=== PATIENT | female | born 1965 | race Caucasian/White ===

== ENCOUNTER 2020-09-26 12:53 | Outpatient (CLI) | payer BC, SELFPAY ==
--- NOTE | 2020-09-26 13:05 | XR_ITS ---
WS: [id number] Right knee, 3 views, 09/26/2020 Clinical Data: RT KNEE PAIN Comparison: None. Findings: No fractures or dislocations are seen. The joint spaces are normal. The patella is intact. The soft t issues are unremarkable. There is a calcification adjacent to the lateral femoral condyle which may be from prior injury. It c ould also be a calcification within the synovial cartilage. XR/XR knee RT 3V* [id number] Impression: Negative for acute injury of the right knee.
== END 2020-09-26 12:54 | disposition home or self-care (01) ==
LOC: RADWPI 12:56
PROVIDERS: PCP Family Medicine; Visit Provider Family Medicine
DX: M25.561 Pain in right knee (principal)
CPT/HCPCS: 73562

== ENCOUNTER 2021-06-04 07:55 | Outpatient (CLI) | payer BC, SELFPAY ==
--- NOTE | 2021-06-04 08:00 | MM_ITS ---
WS: [id number] BILATERAL SCREENING DIGITAL MAMMOGRAM WITH CAD HISTORY: SCREENING COMPARISON: 09/28/2019 and 06/15/2018 Bilateral CC and MLO views submitted. Computer aided detection analyzed. Breast composition: The breasts are extremely dense, which lowers the sensitivity of mammography. No suspicious masses, microcalcifications or architectural distortion. Very dense breast tissue with dif fuse scattered calcifications. Majority of these calcifications appear benign. There are no suspiciou s grouping of calcifications appreciated. MM/[place] [id number] IMPRESSION: BI-RADS: 2-Benign FOLLOW UP: 1 Year Follow-up
== END 2021-06-04 07:56 | disposition home or self-care (01) ==
LOC: RADSHAW 07:59
PROVIDERS: PCP Family Medicine; Visit Provider Family Medicine
DX: Z12.31 Encounter for screening mammogram for malignant neoplasm of breast (principal)
CPT/HCPCS: 77067

== ENCOUNTER 2022-02-19 11:00 | Outpatient (CLI) | payer BC, SELFPAY ==
--- NOTE | 2022-02-19 11:23 | XR_ITS ---
WS: [id number] Exam: XR knee LT 3V* [id number] Date/Time of Exam: 02/19/2022 11:26 AM Reason For Exam: PAIN IN LEFT KNEE No fracture or dislocation. The joint compartments are well preserved. Effusion in the suprapatellar bursa. XR/XR knee LT 3V* [id number] IMPRESSION: 1. Joint effusion. No fracture or other significant finding.
== END 2022-02-19 11:01 | disposition home or self-care (01) ==
PROVIDERS: PCP Family Medicine; Visit Provider Family Medicine
DX: M25.562 Pain in left knee (principal); M25.462 Effusion, left knee
CPT/HCPCS: 73562

== ENCOUNTER 2022-07-14 08:25 | Outpatient (CLI) | payer BC, SELFPAY ==
--- NOTE | 2022-07-14 08:31 | MM_ITS ---
WS: [id number] Bilateral screening 3D tomosynthesis digital mammogram, 07/14/2022 Clinical Data: SCREENING Comparison: 06/04/2021, 09/28/2019, 06/15/2018, 06/08/2017, 05/19/2016, 05/01/2015, 09/19/2013, 02/14/2012, 09/11/2010, 09/18/2008, 06/18/2007. Findings: The breast parenchymal pattern shows heterogeneous density. No spiculated masses or clustered calcif ications are seen. There are no secondary signs of carcinoma. There are small benign calcifications t hroughout both breasts. MM/[place] [id number] Impression: 1. Negative bilateral mammogram unchanged. 2. Recommend annual screening mammograms. BIRADS: 2-Benign FOLLOW UP: 1 Year Follow-up The CAD relay checker was used.
== END 2022-07-14 08:26 | disposition home or self-care (01) ==
PROVIDERS: PCP Family Medicine; Visit Provider Family Medicine
DX: Z12.31 Encounter for screening mammogram for malignant neoplasm of breast (principal)
CPT/HCPCS: 77063; 77067

== ENCOUNTER 2022-07-20 07:19 | Outpatient (RCR) | payer BC, SELFPAY | END 2022-07-21 23:59 | disposition home or self-care (01) | LOC: SPT 07:19 | PROVIDERS: PCP Family Medicine; Visit Provider Family Medicine | DX: M25.562 Pain in left knee (principal) | CPT/HCPCS: 97110; 97161 ==

== ENCOUNTER 2022-07-22 06:00 | Outpatient (RCR) | payer BC, SELFPAY | END 2022-08-20 23:59 | disposition home or self-care (01) | LOC: SPT 06:00 | PROVIDERS: PCP Family Medicine; Visit Provider Family Medicine | DX: M25.562 Pain in left knee (principal) | CPT/HCPCS: 97110 ==

== ENCOUNTER 2023-08-24 06:52 | Day surgery (SDC) | payer BC, SELFPAY ==
[2023-08-22 09:39] VITALS: BMI 22.2
[2023-08-24 07:04] VITALS: BP 121/84; PULSE 75; RESP 16; TEMP 36.2; O2SAT 96; BMI 22.2
--- NOTE | 2023-08-24 07:17 | ANES.PREANE2 ---
Pre-Anesthetic Assessment Height/Weight: Height 1.68 m Weight 62.596 kg Temp Pulse Resp BP Pulse Ox O2 Del Method 97.2 F L 75 16 121/84 96 Room Air 08/24/23 07:04 08/24/23 07:04 08/24/23 07:04 08/24/23 07:04 08/24/23 07:04 08/24/23 07:04 Preop Diagnosis: SCREENING Operation Date: 08/24/23 08:00 Proposed Procedures p Colonoscopy 81182,z12.11(Not Applicable) - Jas Velázquez DO Familial anesthetic complications: NONE Was Beta Kelin taken within 24 hours: N/A Last intake: Intake Last Liquid Date 08/23/23 Last Liquid Time 20:30 Last Solid Date 08/22/23 Last Solid Time 18:00 Social No alcohol and No tobacco Exam alert, oriented x 3, clear to auscultation bilaterally and regular rate & rhythm Airway Submandibular: within normal limits Cervical ROM: within normal limits Mallampati: Class I Dentition: full Pulmonary None reported CV/HEM Palpitations None reported Hepatic None reported GI None reported Metabolic None reported Musc/skel None reported Neuropsych None reported Anesthetic Plan ASA status: 1 Anesthesia: MAC Medications/Allergies Home Medications Medication Instructions Recorded Confirmed Last Taken Type metoprolol tartrate 25 mg tablet 12.5 mg PO DAILY 08/22/23 08/24/23 08/23/23 History Allergies Allergy/AdvReac Type Severity Reaction Status Date / Time No Known Allergies Allergy Unverified 06/07/23 08:32 [facility] Anesthesia Social History Smoking and tobacco status: never smoked Alcohol intake: never Household members: spouse and children Marital status: Current occupational status: retired Data Anesthesia Cardiac Studies: No Data to Display
[2023-08-24] MEDS: sodium chloride 0.9% 1,000 ML 30 ML IV (07:24)
--- NOTE | 2023-08-24 07:45 | PM.HP ---
Providers/Chief Complaint Primary Care Provider: Korin Verdugo MD Chief Complaint: Z12.11 History of Present Illness Momo Catherine is a 58 year old female Review of Systems General: Reports: 10 or more systems reviewed and unremarkable except in HPI and below Medications/Allergies Home Medications Medication Instructions Recorded Confirmed Last Taken Type metoprolol tartrate 25 mg tablet 12.5 mg PO DAILY 08/22/23 08/24/23 08/23/23 History Allergies Allergy/AdvReac Type Severity Reaction Status Date / Time No Known Allergies Allergy Unverified 06/07/23 08:32 PFSH Acute PFSH: Medical History (Updated 08/24/23 @ 07:45 by Jas Velázquez DO) History of colon polyps Surgical History (Updated 08/24/23 @ 07:45 by Jas Velázquez DO) Hx of colonoscopy 5 years ago, Polyp was found Social History Smoking and tobacco status: never smoked Alcohol intake: never Household members: spouse and children Marital status: Current occupational status: retired Vitals/I&O/Wt Last Vital Signs Temp 97.2 F L 08/24/23 07:04 Pulse 75 08/24/23 07:04 Resp 16 08/24/23 07:04 BP 121/84 08/24/23 07:04 Pulse Ox 96 08/24/23 07:04 O2 Del Method Room Air 08/24/23 07:04 Weight last 48 hrs Weight 138 lb Weight 138 lb A&P Assessment and plan (1) History of colon polyps: Plan Screening colonoscopy The risks and benefits of the procedure, including bleeding, infection, intestinal perforation requiring surgery, missed lesion were explained to the patient. The patient is understanding of the risks and wishes to proceed. Attestations Medical Necessity Statement*: Home Coding Level of Care Code Acute Code for Chg Fwd Diagnoses History of colon polyps Z86.010
[2023-08-24 07:59] LABS: OR HCG Qualitative Urine Negative (Negative)
[2023-08-24 08:07] VITALS: BP 108/69; PULSE 67; RESP 16; TEMP 36.2; O2SAT 100
[2023-08-24 08:12] VITALS: BP 118/70; PULSE 62; RESP 18; O2SAT 100
--- NOTE | 2023-08-24 08:15 | ANE.PACU2 ---
Inpatient post-anesthesia follow up: Airway intact: Yes Vital signs: Temperature 97.1 F Pulse Rate 62 Respiratory Rate 18 Blood Pressure 134/88 Pulse Oximetry 99 Oxygen Delivery Me thod Room Air Oxygen Flow Rate 100 Fraction of Inspir ed Oxygen Hydration adequate: Yes Nausea and vomiting: No Pain level: 1 Mental status: Baseline
[2023-08-24 08:22] VITALS: BP 134/88; PULSE 62; RESP 18; O2SAT 99
== END 2023-08-24 08:35 | disposition home or self-care (01) ==
PROVIDERS: PCP Family Medicine; Visit Provider Surgery
PROC: 0DJD8ZZ Inspection of Lower Intestinal Tract, Via Natural or Artificial Opening Endoscopic (ICD-10-PCS; CPT 45378; principal; 2023-08-24 08:00)
DX: Z12.11 Encounter for screening for malignant neoplasm of colon (principal); Z86.010 Personal history of colon polyps
CPT/HCPCS: 45378; 81025; 84703; J2704; J7030

== ENCOUNTER 2023-09-08 09:54 | Outpatient (CLI) | payer BC, SELFPAY ==
--- NOTE | 2023-09-08 10:04 | MM_ITS ---
WS: [id number] SCREENING DIGITAL BREAST TOMOSYNTHESIS MAMMOGRAM WITH CAD HISTORY: SCREENING COMPARISON: 06/04/2021, 07/14/2022, 09/28/2019 Bilateral CC and MLO with tomosynthesis and synthetic mammography submitted. Computer aided detection analyzed. Breast composition: The breasts are heterogeneously dense, which may obscure small masses. There is a n asymmetry in the lateral RIGHT breast at a posterior depth measuring 8 mm. This asymmetry has becom e more prominent and most recent years. Recommend additional evaluation. Not definitely visualized on the lateral projection. Additional bilateral benign calcifications. IMPRESSION: MM/[place] [id number] BI-RADS: 0-Incomplete: Need additional imaging evaluation FOLLOW UP: Need Additional Imaging RIGHT breast: Spot compression views (CC and MLO). True ML. Ultrasound to follo w if abnormality persists.
== END 2023-09-08 09:55 | disposition home or self-care (01) ==
LOC: RAD 09:55
PROVIDERS: PCP Family Medicine; Visit Provider Family Medicine
DX: Z12.31 Encounter for screening mammogram for malignant neoplasm of breast (principal)
CPT/HCPCS: 77063; 77067

== ENCOUNTER 2023-10-24 08:04 | Outpatient (CLI) | payer BC, SELFPAY ==
--- NOTE | 2023-10-24 08:13 | MM_ITS ---
WS: [id number] ADDITIONAL VIEWS RIGHT MAMMOGRAM WITH DIGITAL BREAST TOMOSYNTHESIS. RIGHT BREAST ULTRASOUND HISTORY: ABNORMAL MAMMO COMPARISON: 09/08/2023, 07/14/2022, 06/04/2021 RIGHT MAMMOGRAM: Spot compression views and true ML with digital breast tomosynthesis and SM. Asymmetry persists in the upper outer quadrant but becomes less masslike. Similar to prior studies da ting back to 2017. There are additional benign calcifications scattered throughout the breast. RIGHT BREAST ULTRASOUND 2-D and color Doppler imaging submitted. Ultrasound directed to the upper outer quadrant of the RIGHT breast. There is no mass or areas of sha dowing or distortion. There is dense fibroglandular tissue is noted on the mammogram. There is a alise gn cyst measuring 6 x 7 x 5 mm at 9:00, 2 cm from the nipple. IMPRESSION: MM/[place] [id number] BI-RADS: 2-Benign FOLLOW UP: 1 Year Follow-up
== END 2023-10-24 08:05 | disposition home or self-care (01) ==
LOC: RAD 08:04
PROVIDERS: PCP Family Medicine; Visit Provider Family Medicine
DX: R92.8 Other abnormal and inconclusive findings on diagnostic imaging of breast (principal); N64.89 Other specified disorders of breast
CPT/HCPCS: 76642; 77061; G0279

== ENCOUNTER 2024-12-21 09:22 | Outpatient (CLI) | payer BC, SELFPAY ==
--- NOTE | 2024-12-21 09:28 | MM_ITS ---
WS: [id number] BILATERAL SCREENING DIGITAL TOMOSYNTHESIS MAMMOGRAM WITH CAD HISTORY: SCREENING COMPARISON: 10/24/2023, 09/08/2023, 06/15/2018 and 07/14/2022 Bilateral CC and MLO views with tomosynthesis and synthetic mammography submitted. Computer aided det ection analyzed. Breast composition: The breasts are extremely dense, which lowers the sensitivity of mammography. No suspicious masses, microcalcifications or architectural distortion. Numerous scattered calcifications within each breast. No suspicious grouping of calcifications. Asymmetries are stable. MM/MM scr tomosynthesis [id number] IMPRESSION: BI-RADS: 2 - Benign FOLLOW UP: 1 Year Follow-up
== END 2024-12-21 09:23 | disposition home or self-care (01) ==
PROVIDERS: PCP Family Medicine; Visit Provider Family Medicine
DX: Z12.31 Encounter for screening mammogram for malignant neoplasm of breast (principal); R92.343 Mammographic extreme density, bilateral breasts; R92.1 Mammographic calcification found on diagnostic imaging of breast; N64.89 Other specified disorders of breast
CPT/HCPCS: 77063; 77067